=== PATIENT | female | born 1990 | race Caucasian/White ===

== ENCOUNTER 2017-05-30 19:19 | Emergency (ER) | payer OTHER ==
--- NOTE | 2017-05-30 20:03 | PDOC ---
Rapid Medical Evaluation Chief Complaint: Headache Time Seen by Provider: 05/30/17 19:59 Medical Evaluation: Allergies Allergy/AdvReac Type Severity Reaction Status Date / Time SEAFOOD Allergy Swelling Uncoded 12/22/12 01:51 05/30/17 19:59 I Have performed a brief in-person evaluation of this patient. c/o headache x5 days with no relief with Excedrin migraine and tylenol. no photophobia. pain 6/ 10 pmhx/pshx of syncope, LEEP procedure pertinent physical exam findings: patient alert ox3, I have ordered the following the patient will proceed to the ED for further evaluation.
[2017-05-30 20:29] VITALS: BMI 20.2
[2017-05-30 20:52] LABS: URINE APPEARANCE CLEAR; URINE BILIRUBIN NEGATIVE (NEGATIVE); URINE BLOOD 2+ (NEGATIVE); URINE COLOR STRAW; URINE GLUCOSE (UA) NEGATIVE (NEGATIVE); URINE KETONE NEGATIVE (NEGATIVE); URINE NITRITE NEGATIVE (NEGATIVE); URINE PROTEIN NEGATIVE (NEGATIVE); URINE UROBILINOGEN NEGATIVE mg/dL (0.2-1.0)
[2017-05-30 21:08] LABS: URINE RBC 2; URINE WBC 2
--- NOTE | 2017-05-30 21:44 | PDOC ---
History of Present Illness - History of Present Illness Initial Comments: 05/30/17 21:51 The patient is a 27 year old female, with no significant past medical history, who presents to the emergency department with a constant posterior headache for 5 days. The patient states the headache starts about 5 minutes after waking up each morning for the past 5 days. The patient reports taking Tylenol extra strength and Excedrin without significant relief. She reports her current headache feels like headaches she has experienced in the past, however, states her headaches usually resolve after taking Tylenol or Excedrin. She reports feeling nauseous about 2 days ago, but feels it might have been the medication I took for the headache. The patient reports being seen in an ED for fainting in the past and was advised to follow-up with neurologist, however, denies doing so. She does report follow-up with a fan mail clerk and having a normal work -up at the time. Pt is currently on her menstrual cycle. Pt takes oral contraceptives She denies chest pain, shortness of breath, and dizziness. She denies fever, chills, nausea, vomit, diarrhea and constipation. She denies dysuria, frequency , urgency and hematuria. Allergies: NKDA Social history: Pt denies toxic habits <Cristin Aguilar - Last Filed: 05/30/17 21:51> <Adeola Prater - Last Filed: 05/30/17 23:51> - General Chief Complaint: Headache Stated Complaint: HEADACHE Time Seen by Provider: 05/30/17 19:59 Past History <Cristin Aguilar - Last Filed: 05/30/17 21:51> - Past Medical History Anemia: No Asthma: No Cancer: No Cardiac Disorders: No CVA: No COPD: No DVT: No Dementia: No Diabetes: No Dialysis: No GI Disorders: No Disorders: No HTN: No Hypercholesterolemia: No Kidney Stones: No Liver Disease: No Psychiatric Problems: No Seizures: No Thyroid Disease: No Lung CA: No Other medical history: Syncope Episodes - Surgical History Abdominal Surgery: No Appendectomy: No Cardiac Surgery: No Cholecystectomy: No Gastric Stapling: No GI Surgery: No Lung Surgery: No Neurologic Surgery: No - Suicide/Smoking/Psychosocial Hx Smoking Status: No Smoking History: Never smoked Number of Cigarettes Smoked Daily: 0 Information on smoking cessation initiated: No Hx Alcohol Use: Yes (Occasional) Drug/Substance Use Hx: No Substance Use Type: Alcohol <AlenbayleeAdeola neville - Last Filed: 05/30/17 23:51> - Past Medical History Allergies/Adverse Reactions: Allergies Allergy/AdvReac Type Severity Reaction Status Date / Time shellfish derived Allergy Verified 05/30/17 23:28 SEAFOOD Allergy Swelling Uncoded 12/22/12 01:51 Home Medications: Ambulatory Orders No Home Medications 0 dose .ROUTE UTDICT 12/22/12 Review of Systems - Review of Systems Able to Perform ROS?: Yes Comments:: 05/30/17 21:51 GENERAL/CONSTITUTIONAL: No fever or chills. No weakness. HEAD, EYES, EARS, NOSE AND THROAT: No change in vision. No ear pain or discharge. No sore throat. GASTROINTESTINAL: No nausea, vomiting, diarrhea or constipation. GENITOURINARY: No dysuria, frequency, or change in urination. CARDIOVASCULAR: No chest pain or shortness of breath. RESPIRATORY: No cough, wheezing, or hemoptysis. MUSCULOSKELETAL: No joint or muscle swelling or pain. No neck or back pain. SKIN: No rash NEUROLOGIC: (+) headache, No vertigo, loss of consciousness, or change in strength/sensation. ENDOCRINE: No increased thirst. No abnormal weight change. HEMATOLOGIC/LYMPHATIC: No anemia, easy bleeding, or history of blood clots. ALLERGIC/IMMUNOLOGIC: No hives or skin allergy. <Cristin Aguilar - Last Filed: 05/30/17 21:51> *Physical Exam - Vital Signs Last Vital Signs Temp Pulse Resp BP Pulse Ox 98.3 F 72 18 137/85 99 05/30/17 19:59 05/30/17 19:59 05/30/17 19:59 05/30/17 19:59 05/30/17 19:59 - Physical Exam Comments: 05/30/17 21:51 Constitutional: Awake, alert, oriented. No acute distress. Head: Normocephalic. Atraumatic Eyes: PERRL. EOMI. Conjunctivae are not pale. ENT: Mucous membranes are moist and intact. Posterior pharynx without exudates or erythema. Uvula midline. Neck: Supple. Full ROM. No lymphadenopathy. Cardiovascular: Regular rate. Regular rhythm. S1, S2 regular. Distal pulses are 2+ and symmetric. Pulmonary/Chest: No evidence of respiratory distress. Clear to auscultation bilaterally No wheezing, rales or rhonchi. Abdominal: Soft and non-distended. There is no tenderness. No rebound, guarding or rigidity. No organomegaly. No palpable masses. Good bowel sounds. Back: No CVA tenderness. Musculoskeletal: No edema. No cyanosis. No clubbing. Full range of motion in all extremities. Nocalf tenderness. Radial/pedal pulses are intact and 2+ bilaterally Skin: Skin is warm and dry. No petechiae. No purpura. Neurological: Alert and oriented to person, place, and time. Cranial nerves II -XII are grossly intact. Normal speech. Strength is grossly symmetric. No sensory deficits. Psychiatric: Good eye contact. Normal interaction, affect and behavior. <Cristin Aguilar - Last Filed: 05/30/17 21:51> - Vital Signs Last Vital Signs Temp Pulse Resp BP Pulse Ox 98.3 F 72 18 137/85 99 05/30/17 19:59 05/30/17 19:59 05/30/17 19:59 05/30/17 19:59 05/30/17 19:59 <Adeola Prater - Last Filed: 05/30/17 23:51> ED Treatment Course - ADDITIONAL ORDERS Additional order review: Laboratory Results 05/30/17 20:10 Urine Color Straw Urine Appearance Clear Urine pH 7.0 Ur Specific [place] 1.005 Urine Protein Negative Urine Glucose (UA) Negative Urine Ketones Negative Urine Blood 2+ H Urine Nitrite Negative Urine Bilirubin Negative Urine Urobilinogen Negative Urine WBC (Auto) 2 Urine RBC (Auto) 2 Ur Epithelial Cells Rare Urine HCG, Qual Negative <Cristin Aguilar - Last Filed: 05/30/17 21:51> - LABORATORY CBC & Chemistry Diagram: 05/30/17 23:00 05/30/17 23:00 - ADDITIONAL ORDERS Additional order review: Laboratory Results 05/30/17 20:10 Urine Color Straw Urine Appearance Clear Urine pH 7.0 Ur Specific [place] 1.005 Urine Protein Negative Urine Glucose (UA) Negative Urine Ketones Negative Urine Blood 2+ H Urine Nitrite Negative Urine Bilirubin Negative Urine Urobilinogen Negative Urine WBC (Auto) 2 Urine RBC (Auto) 2 Ur Epithelial Cells Rare Urine HCG, Qual Negative <Adeola Prater - Last Filed: 05/30/17 23:51> Medical Decision Making - Medical Decision Making 05/30/17 22:06 a/p: 27yo female with 5 days of FLORES -neuro intact, gradual onset, no meningeal signs, no fever -no risk factors for SAH -will check labs, pt currenlty menstruating -iv benadryl, reglan, ivf -reassess 05/30/17 23:49 re-eval: pt states she no longer wants to wait to be evaluated. flores resolved. states she just wants to go home. understands her workup has not yet been completed. States she wants to sign out AMA. recommended she follow up with her PMD and a neurologist for further eval of her headache. recommended she definitely return to the nearest ED if the symptoms return. Answered all questions. Note: The patient insists on leaving the emergency dept and is signing out against medical advice. The patient understands the risks and complications that may result from the refusal of medical care and admission which includes and permanent disability. The patient has the mental capacity of understanding the risks of refusing care and is capable of making an informed decision. The patient was instructed to return to the emergency department should [] change [] mind regarding medical care or should [] condition worsen. The patient signed the Against Medical Advice form. <Adeola Prater - Last Filed: 05/30/17 23:51> *DC/Admit/Observation/Transfer - Attestations Scribe Attestion: 05/30/17 21:51 Documentation prepared by Cristin Aguilar, acting as director of medical education for Adeola Prater DO, <Cristin Aguilar - Last Filed: 05/30/17 21:51> - Attestations Physician Attestion: 05/30/17 23:51 I, Dr. Adeola Prater DO, attest that this document has been prepared under my direction and personally reviewed by me in its entirety. I further attest, that it accurately reflects all work, treatment, procedures and medical decision -making performed by me. <Adeola Prater - Last Filed: 05/30/17 23:51> Diagnosis at time of Disposition: Headache - Discharge Dispostion Disposition: AGAINST MEDICAL ADVICE Condition at time of disposition: Unchanged/Unknown - Referrals Referrals: Michoacano Conteh MD [Staff Physician] - - Patient Instructions Printed Discharge Instructions: DI for Headache Additional Instructions: Please follow up with your PMD in the next day. Please call the neurologist and arrange for follow up. Please return to the nearest ED if your symptoms return.
[2017-05-30] MEDS ORDERED: SODIUM CHLORIDE 0.9% 1000 ML INFUS.BAG IV ONE (21:50)
[2017-05-30 23:14] LABS: BASOPHIL 0.7 % (0-2.0); EOSINOPHIL 1.1 % (0-4.5); MCH 30.4 pg (25.7-33.7); MCHC 33.8 g/dl (32.0-36.0); MEAN CELL VOLUME 89.9 fl (80-96); MEAN PLT VOLUME 7.2 fl (7.5-11.1); NEUTROPHILS 44.7 % (42.8-82.8); PLATELET COUNT 314 K/MM3 (134-434); WHITE BLOOD COUNT 8.9 K/mm3 (4.0-10.0)
[2017-05-30] MEDS ORDERED: METOCLOPRAMIDE HCL INJECTION 10 MG/2 ML VIAL IVPUSH ONE (23:30)
[2017-05-30] MEDS ORDERED: KETOROLAC TROMETHAMINE 15 MG/ML VIAL IVPUSH ONE (23:30)
[2017-05-30 23:39] LABS: ALBUMIN 3.9 g/dl (3.4-5.0); ANION GAP 15 (8-16); BILIRUBIN,TOTAL 0.7 mg/dL (0.2-1.0); CALCIUM 9.3 mg/dL (8.5-10.1); CO2 21 mmol/L (21-32); CREATININE 0.7 mg/dL (0.55-1.02); GLUCOSE,RANDOM 77 mg/dL (74-106); SGPT/ALT 19 U/L (12-78); TOT PROT 8.2 g/dl (6.4-8.2)
[2017-05-30 23:40] LABS: ALK PHOS 56 U/L (45-117)
[2017-05-31] LABS: SGOT/AST 22 U/L (15-37)
[2017-05-31 01:10] VITALS: BP 110/80; PULSE 70; TEMP 98.7
[2017-05-31 17:57] LABS: URINE LEUK ESTERASE Negative (NEGATIVE)
== END 2017-05-31 | disposition left against medical advice (07) ==
LOC: JER 19:19
PROC: 3E0333Z Introduction of Anti-inflammatory into Peripheral Vein, Percutaneous Approach (ICD-10-PCS; principal; 2017-05-30)
PROC: 3E033GC Introduction of Other Therapeutic Substance into Peripheral Vein, Percutaneous Approach (ICD-10-PCS; 2017-05-30)
PROC: 3E033GC Introduction of Other Therapeutic Substance into Peripheral Vein, Percutaneous Approach (ICD-10-PCS; 2017-05-30)
DX: R51 Headache (principal)
CPT/HCPCS: 36415; 80053; 81003; 81015; 83735; 84703; 85025; 99281-25

== ENCOUNTER 2019-09-08 00:57 | Emergency (ER) | payer OTHER ==
[2019-09-08 01:01] VITALS: BP 106/66; PULSE 95; TEMP 98.2; BMI 19.8
[2019-09-08] MEDS ORDERED: SODIUM CHLORIDE 0.9% 1000 ML INFUS.BAG IV ONE (02:13)
[2019-09-08] MEDS ORDERED: FAMOTIDINE 20 MG/50 ML IVPB 20 MG/50 ML MG IVPB ONE ×2 (02:13→02:57)
[2019-09-08] MEDS ORDERED: ACETAMINOPHEN 1000 MG/100 ML VIAL (NON FORMULARY) IVPB ONE (02:14)
--- NOTE | 2019-09-08 02:59 | PDOC ---
History of Present Illness - General Chief Complaint: Pain Stated Complaint: ABD PAIN Time Seen by Provider: 09/08/19 01:49 History Source: Patient Exam Limitations: No Limitations - History of Present Illness Initial Comments: 09/08/19 02:58 29-year-old female with a past medical history with six hours of periumbilical and epigastric abdominal pain. Patient states that she has eaten two hours prior and has had pain since then. She describes the pain is constant, non- radiating, traumatic. She denies any association with fevers, chills, nausea, vomiting, dysuria, flank pain, vaginal discharge. She has not had pain like this before. She denies any prior history of cholecystitis or appendicitis. She doesnt match to a prior history of ovarian sis. Last menstrual period was August 29. Past History - Past Medical History Allergies/Adverse Reactions: Allergies Allergy/AdvReac Type Severity Reaction Status Date / Time shellfish derived Allergy Verified 09/08/19 01:01 SEAFOOD Allergy Swelling Uncoded 09/08/19 01:01 Home Medications: Ambulatory Orders No Home Medications 0 dose .ROUTE UTDICT 12/22/12 Anemia: No Asthma: No Cancer: No Cardiac Disorders: No CVA: No COPD: No DVT: No Dementia: No Diabetes: No Dialysis: No GI Disorders: No Disorders: No HTN: No Hypercholesterolemia: No Kidney Stones: No Liver Disease: No Psychiatric Problems: No Seizures: No Thyroid Disease: No Lung CA: No - Surgical History Abdominal Surgery: No Appendectomy: No Cardiac Surgery: No Cholecystectomy: No Gastric Stapling: No GI Surgery: No Lung Surgery: No Neurologic Surgery: No - Psycho Social/Smoking Cessation Hx Smoking Status: No Smoking History: Never smoked Number of Cigarettes Smoked Daily: 0 Hx Alcohol Use: Yes (Occasional) Drug/Substance Use Hx: No Substance Use Type: Alcohol Review of Systems - Review of Systems Able to Perform ROS?: Yes Comments:: 09/08/19 02:58 GENERAL/CONSTITUTIONAL: No fever or chills. No weakness. HEAD, EYES, EARS, NOSE AND THROAT: No change in vision. No ear pain or discharge. No sore throat. CARDIOVASCULAR: No chest pain, palpitations, or lightheadedness. RESPIRATORY: No cough, wheezing, shortness of breath, or hemoptysis. GASTROINTESTINAL: + for abdominal pain. No nausea, vomiting, diarrhea, or constipation. GENITOURINARY: No dysuria, frequency, hematuria, or change in urination. MUSCULOSKELETAL: No joint or muscle swelling or pain. No neck or back pain. SKIN: No rash or lesions. NEUROLOGIC: No headache, numbness, tingling, focal weakness, loss of consciousness, or change in strength/sensation. Is the patient limited [place] proficient: No *Physical Exam - Vital Signs Last Vital Signs Temp Pulse Resp BP Pulse Ox 98.2 F 95 H 18 106/66 98 09/08/19 00:59 09/08/19 00:59 09/08/19 00:59 09/08/19 00:59 09/08/19 00:59 - Physical Exam 09/08/19 04:24 GENERAL: Well developed, well nourished. Awake and alert. No acute distress. HEENT: Normocephalic, atraumatic. Hearing grossly normal. Moist mucous membranes. PERRLA, EOMI. No conjunctival pallor. Sclera are non-icteric. NECK: Supple. Full ROM. No JVD. CARDIOVASCULAR: Regular rate and rhythm. No murmurs, rubs, or gallops. PULMONARY: No evidence of respiratory distress. Lungs clear to auscultation bilaterally. No wheezing, rales, or rhonchi. ABDOMINAL: Soft. TTP with guarding in epigastrium and periumbilical abdomen. No McBurney's tenderness. Non-distended. No rebound. GENITOURINARY: No CVA tenderness bilaterally. MUSCULOSKELETAL: Normal range of motion at all joints. No bony deformities or tenderness. EXTREMITIES: No cyanosis. No clubbing. No edema. No calf tenderness or swelling. SKIN: Warm and dry. Normal capillary refill. No rashes. No jaundice. NEUROLOGICAL: Alert, awake, appropriate. Cranial nerves 2-12 grossly intact. Normal speech. Gait is normal without ataxia. PSYCHIATRIC: Cooperative. Good eye contact. Appropriate mood and affect. ED Treatment Course - LABORATORY CBC & Chemistry Diagram: 09/08/19 02:44 09/08/19 02:44 - RADIOLOGY Radiology Studies Ordered: Category Date Time Status TRANSVAGINAL ULTRASOUND US [US] Stat Ultrasound 09/08/19 01:56 Taken Medical Decision Making - Medical Decision Making 09/08/19 04:25 29-year-old female with past medical history was presented with epigastric and periumbilical abdominal pain with tenderness on exam. Patient denies any dysuria or discharge. Last menstrual period was August 29. Concern for , ectopic , peptic ulcer disease, PID, pyelo, UTI. Will obtain labs. Negative for ovarian torsion. Giving fluids and Pepcid. Obtaining CT abdomen pelvis. Patient comfortable appearing otherwise. CBC, CMP WNL. Pending UA and UHCG. 09/08/19 06:36 CTAP WNL. Pt nontender on repeat exam. Will d/c with PCP f/u. Discharge - Discharge Information Problems reviewed: Yes Clinical Impression/Diagnosis: Epigastric pain Condition: Good Disposition: HOME - Admission No - Follow up/Referral - Patient Discharge Instructions Patient Printed Discharge Instructions: DI for Abdominal Pain-Adult Additional Instructions: Your ER visit is not complete until your follow up with your primary care physician. Please follow up with your primary care physician in 1-2 days. Please return to the ER if you have any signs or symptoms of chest pain, shortness of breath, uncontrollable fever, chills, nausea, vomiting, numbness, tingling, or weakness in any part of your body, changes in vision, or slurred speech. Please return to the ER if symptoms persist, worsen, or new symptoms arise. - Post Discharge Activity
--- NOTE | 2019-09-08 03:34 | PDOC ---
Attending Attestation - Resident Resident Name: Jono Bustillosony - ED Attending Attestation I have performed the following: I have examined & evaluated the patient, The case was reviewed & discussed with the resident, I agree w/resident's findings & plan, Exceptions are as noted - HPI HPI: 09/08/19 03:32 29-year-old female no significant past medical history here today complaining of epigastric periumbilical pain. Patient states it started a few hours ago at approximately 8 PM and no moderating factors was sharp crampy no associated nausea or vomiting no urinary complaints no hematuria. States she does have a history of previous kidney stones however did not have any pain with her prior kidney stone so is unsure this pain is unlike any other pain she has had in the past 09/08/19 03:34 pmhx umbilical hernia repair ( 2 yo) - Physicial Exam PE: 09/08/19 03:33 Awake alert no acute distress lungs are clear bilaterally heart is regular with no murmurs rubs or gallops abdomen is soft there is mild periumbilical tenderness no palpable hernia on Valsalva no rebound no guarding no CVA tenderness skin is warm and dry no rash alert and oriented x3 - Medical Decision Making 09/08/19 03:33 29-year-old female here with epigastric periumbilical pain periumbilical tenderness on exam differential includes ovarian cyst ruptured ovarian cyst appendicitis UTI pyelonephritis another related pain plan ultrasound obtained ovaries basic labs IV hydration Transvaginal ultrasound shows a small right adnexal cyst patient is wharf tender head in the periumbilical region will obtain CT abdomen pelvis to rule out appendicitis labs are otherwise unremarkable 09/08/19 06:38 ct a/p no appendicitis. read as normal. repeat abd exam nontender. ri home.
[2019-09-08 03:35] LABS: BASO % 0.5 % (0-2.0); EOS % 1.5 % (0-4.5); HEMATOCRIT 38.1 % (32.4-45.2); HEMOGLOBIN 12.7 GM/dL (10.7-15.3); LYMPH % 35.3 % (8-40); MCH 28.6 pg (25.7-33.7); MCHC 33.4 g/dl (32.0-36.0); MEAN CELL VOLUME 85.7 fl (80-96); MEAN PLT VOLUME 7.6 fl (7.5-11.1); MONO % 9.7 % (3.8-10.2); PLATELET COUNT 331 K/MM3 (134-434); RBC 4.45 M/mm3 (3.60-5.2); RDW 15.5 % (11.6-15.6); WHITE BLOOD COUNT 7.2 K/mm3 (4.0-10.0)
[2019-09-08 03:47] LABS: PROTHROMBIN TIME (PATIENT) 11.8 SEC (9.7-13.0)
[2019-09-08 04:00] LABS: ALBUMIN 3.9 g/dl (3.4-5.0); BILIRUBIN,TOTAL 0.6 mg/dL (0.2-1); BLOOD UREA NITROGEN 10.5 mg/dL (7-18); CALCIUM 8.8 mg/dL (8.5-10.1); CREATININE 0.8 mg/dL (0.55-1.3); TOT PROT 7.6 g/dl (6.4-8.2)
[2019-09-08 05:22] LABS: PH,URINE 7.5 (5.0-8.0); URINE APPEARANCE CLEAR; URINE BILIRUBIN NEGATIVE (NEGATIVE); URINE COLOR YELLOW; URINE GLUCOSE (UA) NEGATIVE (NEGATIVE); URINE KETONE NEGATIVE (NEGATIVE); URINE LEUK ESTERASE NEGATIVE (NEGATIVE); URINE NITRITE NEGATIVE (NEGATIVE); URINE PROTEIN NEGATIVE (NEGATIVE); URINE UROBILINOGEN 0.2 mg/dL (0.2-1.0)
== END 2019-09-08 07:08 | disposition home or self-care (01) ==
LOC: JER 00:57
PROC: 3E033GC Introduction of Other Therapeutic Substance into Peripheral Vein, Percutaneous Approach (ICD-10-PCS; principal; 2019-09-08)
DX: R10.13 Epigastric pain (principal); Z91.013 Allergy to seafood
CPT/HCPCS: 36415; 74177-TC; 76830-TC; 80053; 81003; 83690; 84703; 85025; 85610; 86850; 86900; 86901; 87086; 96365; 99285-25; J7030

== ENCOUNTER 2021-03-05 06:19 | Emergency (ER) | payer OTHER ==
[2021-03-05 07:02] VITALS: BMI 18.8
[2021-03-05] MEDS ORDERED: LIDOCAINE HCL 2% JELLY 10 ML CARTRIDGE PR ONE (07:20)
[2021-03-05] MEDS ORDERED: LIDOCAINE HCL 2% JELLY 10 ML CARTRIDGE ONE (07:22)
[2021-03-05 08:59] LABS: BASO % 0.4 % (0-2.0); HEMATOCRIT 40.9 % (32.4-45.2); HEMOGLOBIN 13.7 GM/dL (10.7-15.3); LYMPH % 36.8 % (8-40); MCHC 33.6 g/dl (32.0-36.0); MEAN CELL VOLUME 86.4 fl (80-96); MEAN PLT VOLUME 7.4 fl (7.5-11.1); MONO % 10.8 % (3.8-10.2); PLATELET COUNT 359 10^3/uL (134-434); RBC 4.73 M/mm3 (3.60-5.2); RDW 15.2 % (11.6-15.6); WHITE BLOOD COUNT 6.7 K/mm3 (4.0-10.0)
[2021-03-05 09:05] LABS: CREATININE 0.6 mg/dL (0.55-1.3)
[2021-03-05 09:07] LABS: TOT PROT 9.7 g/dl (6.4-8.2)
[2021-03-05 09:46] LABS: BILIRUBIN,TOTAL 0.6 mg/dL (0.2-1)
[2021-03-05 10:03] LABS: ALBUMIN 3.7 g/dl (3.4-5.0)
[2021-03-05 10:54] VITALS: BP 122/65; PULSE 70; TEMP 97.9
== END 2021-03-05 10:54 | disposition home or self-care (01) ==
LOC: JER 06:19
DX: K64.9 Unspecified hemorrhoids (principal); K62.5 Hemorrhage of anus and rectum; K59.00 Constipation, unspecified
CPT/HCPCS: 36415; 80053; 82272; 85025; 99283-25

== ENCOUNTER 2022-04-13 22:13 | Emergency (ER) | payer OTHER ==
[2022-04-13 22:27] VITALS: BP 128/78; PULSE 74; RESP 16; TEMP 99; BMI 21.7
== END 2022-04-13 23:04 | disposition home or self-care (01) ==
LOC: FER 22:13
DX: R10.33 Periumbilical pain (principal)
CPT/HCPCS: 81025; 99283-25